=== PATIENT | male | born 2000 | race Caucasian/White ===

== ENCOUNTER → 2024-02-17 | Day surgery (SDC) | payer OTHER ==
[~2024-02-17] VITALS: Ht 177.8 cm; Wt 76.7 kg
[~2024-02-17] MED LIST: EPINEPHrine 1MG/ML INJ 30ML MD-VIAL As Ordered ONE; LIDOCAINE 2% 100MG/5ML SDV (FOR ANES.) As Ordered ONE; LR 1,000 ML IV SCH; MIDAZOLAM INJ 2MG/2ML VIAL As Ordered ONE; ONDANSETRON 4MG 2ML VIAL As Ordered ONE; PHENYLephrine 500MCG 5ML (100MCG/ML) SYRINGE As Ordered ONE; ROCURONIUM BROMIDE 50MG/5ML VIAL As Ordered ONE; ROPIvacaine 0.5% 30ML VIAL As Ordered ONE; SUGAMMADEX SODIUM 500 MG/5 ML VIAL (BRIDION) As Ordered ONE; TRANEXAMIC ACID 100 MG/ML 10ML VIAL As Ordered ONE; TRANEXAMIC ACID 100 MG/ML 10ML VIAL IV ONE; ceFAZolin SOD 2 GM in IV 1 EA IV ONE; dexmedeTOMIDine (4MCG/ML)200MCG/50ML BTL (PRECEDEX) As Ordered ONE; ePHEDrine SULFATE 25 MG/5 ML(5MG/ML) SYRINGE As Ordered ONE; fentaNYL 100 MCG/2 ML INJECTION As Ordered ONE; propofoL 200 MG/20 ML VIAL As Ordered ONE
[2024-02-17 06:50] VITALS: BP 137/84; TEMP 97.3; O2SAT 98
== END | disposition home or self-care (01) ==
LOC: M SDC 06:12
PROVIDERS: ATTEND Orthopaedic Surgery
DX: M23.611 Other spontaneous disruption of anterior cruciate ligament of right knee (principal); Z53.8 Procedure and treatment not carried out for other reasons

== ENCOUNTER 2024-02-29 06:32 | Day surgery (SDC) | payer OTHER ==
[~2024-02-29] VITALS: Ht 177.8 cm; Wt 80.8 kg
[2024-02-29] MEDS ORDERED: MIDAZOLAM INJ 2MG/2ML VIAL As Ordered ONE (06:55)
[2024-02-29] MEDS ORDERED: propofoL 200 MG/20 ML VIAL As Ordered ONE (06:56)
[2024-02-29] MEDS ORDERED: fentaNYL 100 MCG/2 ML INJECTION As Ordered ONE (06:57)
[2024-02-29] MEDS ORDERED: ROCURONIUM BROMIDE 50MG/5ML VIAL As Ordered ONE (06:58)
[2024-02-29] MEDS ORDERED: LIDOCAINE 2% 100MG/5ML SDV (FOR ANES.) As Ordered ONE (06:59)
[2024-02-29] MEDS ORDERED: SUGAMMADEX SODIUM 500 MG/5 ML VIAL (BRIDION) As Ordered ONE (07:02)
[2024-02-29] MEDS ORDERED: dexmedeTOMIDine (4MCG/ML)200MCG/50ML BTL (PRECEDEX) As Ordered ONE (07:03)
[2024-02-29] MEDS ORDERED: ACETAMINOPHEN 1000MG 100ML IV BAG As Ordered ONE (07:03)
[2024-02-29] MEDS ORDERED: ROPIvacaine 0.5% 30ML VIAL PN ONE (07:15)
[2024-02-29] MEDS ORDERED: LIDOCAINE 1% SDV 5ML VIAL PN ONE (07:15)
[2024-02-29] MEDS ORDERED: dexAMETHasone 10MG/1ML VIAL PRES.FREE PN ONE (07:15)
[2024-02-29] MEDS: MIDAZOLAM INJ 2MG/2ML VIAL IV PRN (07:32)
[2024-02-29] MEDS: fentaNYL 100 MCG/2 ML INJECTION IV PRN (07:32)
[2024-02-29] MEDS: ceFAZolin SOD 2 GM in IV 1 EA IV ONE (07:48)
[2024-02-29] MEDS: EPINEPHrine INJ 1 MG/ML 1ML AMP As Ordered ONE (08:30)
[2024-02-29] MEDS ORDERED: HYDROmorphone HCL 2MG/ML 1ML VIAL As Ordered ONE (08:59)
[2024-02-29] MEDS ORDERED: LABETALOL 100MG/20ML VIAL As Ordered ONE (09:08)
[2024-02-29] MEDS: TRANEXAMIC ACID 100 MG/ML 10ML VIAL As Ordered ONE (10:30)
[2024-02-29] MEDS ORDERED: ONDANSETRON 4MG 2ML VIAL As Ordered ONE (10:47)
[2024-02-29] MEDS: EPINEPHrine INJ 1 MG/ML 1ML AMP PN ONE (11:25)
[2024-02-29] MEDS ORDERED: MORPHINE 2 MG/ML 1ML VIAL IV PRN (11:55)
[2024-02-29] MEDS ORDERED: oxyCODONE 5MG TAB PO PRN (11:55)
[2024-02-29] MEDS ORDERED: ONDANSETRON 4MG 2ML VIAL IV PRN (11:55)
[2024-02-29] MEDS ORDERED: fentaNYL 100 MCG/2 ML INJECTION IV PRN (11:55)
[2024-02-29] MEDS: oxyCODONE 5MG TAB PO ONE (14:27)
[2024-02-29 15:13] VITALS: BP 131/76; TEMP 98.6; O2SAT 100
== END 2024-02-29 15:19 | disposition home or self-care (01) ==
LOC: M SDC 06:32
PROVIDERS: ATTEND Orthopaedic Surgery
DX: M23.611 Other spontaneous disruption of anterior cruciate ligament of right knee (principal); M25.561 Pain in right knee
CPT/HCPCS: 29888; 64447; 73560; C1713; C1762; J0131; J0171; J0690; J1100; J1171; J1920; J2250; J2405; J3010